=== PATIENT | female | born 1950 | race Asian ===

== ENCOUNTER 2018-08-01 21:58 | Emergency (ER) | payer OTHER ==
[~2018-08-01 21:58] MED LIST: AMLO-511 PO; CALC-1038 PO; CHOL200059 PO; GLIP5TAB11 PO; ISOS30TA6 PO; OMEP20 PO; PRAV20TA4 PO
== END 2018-08-01 22:05 | disposition left against medical advice (07) ==
LOC: EMS 21:58
DX: Z53.21 Procedure and treatment not carried out due to patient leaving prior to being seen by health care provider (principal)